=== PATIENT | male | born 1950 | race Caucasian/White ===

== ENCOUNTER 2019-01-24 03:49 | Inpatient (IN) | payer OTHER | END 2019-01-27 10:38 | LOC: FER 03:49 → FM/S 06:40 ==

== ENCOUNTER 2020-04-22 12:32 | Emergency (ER) | payer OTHER ==
[2020-04-22 12:47] VITALS: BP 137/95; TEMP 98.7; BMI 28.0
--- NOTE | 2020-04-22 12:56 | PDOC ---
History of Present Illness - General Chief Complaint: Redness To Affected Area Stated Complaint: LEFT FOOT WOUND, REDNESS Time Seen by Provider: 04/22/20 12:37 History Source: Patient Exam Limitations: No Limitations - History of Present Illness Initial Comments: 04/22/20 12:46 69 yo M h/o COPD, schizoaffective d/o, HTN p/w L foot wound x3 days. States he hit is against something at night but wasn't sure what he hit it against. Noticed some redness and swelling in the area and some weeping of the wound on the first day but denies at present time. States he thinks it might look a little better since the onset. Denies fevers. No numbness or weakness in feet. Unsure of last tetanus. Denies pain at site and reports he is able to ambulate without difficulty. Past History - Medical History Allergies/Adverse Reactions: Allergies Allergy/AdvReac Type Severity Reaction Status Date / Time No Known Allergies Allergy Verified 04/22/20 12:34 Home Medications: Ambulatory Orders Amlodipine Besylate [Norvasc -] 10 mg PO DAILY 01/24/19 Atenolol [Tenormin -] 25 mg PO DAILY 01/24/19 Escitalopram Oxalate [Lexapro -] 20 mg PO DAILY 01/24/19 Olanzapine [Zyprexa -] 15 mg PO HS tablet 01/27/19 Clindamycin [Cleocin -] 450 mg PO Q8H #72 capsule 04/22/20 Anemia: No Asthma: No Cancer: No Cardiac Disorders: No CVA: No COPD: Yes CHF: No Dementia: No Diabetes: No GI Disorders: No Disorders: No HTN: Yes Hypercholesterolemia: No Liver Disease: No Psychiatric Problems: Yes (DEPRESSION) Seizures: No Thyroid Disease: No - Surgical History Abdominal Surgery: No Appendectomy: No Cardiac Surgery: Yes (cardiac cath/ stent) Cholecystectomy: No Lung Surgery: No Neurologic Surgery: No Orthopedic Surgery: No - Immunization History Immunization Up to Date: Yes - Psycho-Social/Smoking History Smoking Status: Yes Smoking History: Former smoker Have you smoked in the past 12 months: Yes Number of Cigarettes Smoked Daily: 10 Information on smoking cessation initiated: Yes 'Breaking Loose' booklet given: 08/29/12 - Substance Abuse Hx (Audit-C & DAST Scrn) How often the patient has a drink containing alcohol: Never Score: In Men: 4 or > Positive; In Women: 3 or > Positive: 0 Screen Result (Pos requires Nsg. Audit-10AR): Negative In the last yr the pt used illegal drug/Rx for NonMed reason: No Score: Yes response is considered Positive: 0 Screen Result (Positive result requires Nsg. DAST-10): Negative Review of Systems - Review of Systems Able to Perform ROS?: Yes Comments:: 04/22/20 12:48 GENERAL/CONSTITUTIONAL: No fever or chills. No weakness. HEAD, EYES, EARS, NOSE AND THROAT: No change in vision. No ear pain or discharge. No sore throat. CARDIOVASCULAR: No chest pain or shortness of breath. RESPIRATORY: No cough, wheezing, or hemoptysis. GASTROINTESTINAL: No nausea, vomiting, diarrhea or constipation. GENITOURINARY: No dysuria, frequency, or change in urination. MUSCULOSKELETAL: No joint pain. No neck or back pain. SKIN: as per HPI. NEUROLOGIC: No headache, vertigo, loss of consciousness, or change in strength/sensation. ENDOCRINE: No increased thirst. No abnormal weight change. HEMATOLOGIC/LYMPHATIC: No anemia, easy bleeding, or history of blood clots. ALLERGIC/IMMUNOLOGIC: No hives or skin allergy. *Physical Exam - Vital Signs Last Vital Signs Temp Pulse Resp BP Pulse Ox 98.7 F 101 H 20 137/95 97 04/22/20 12:32 04/22/20 12:32 04/22/20 12:32 04/22/20 12:32 04/22/20 12:32 - Physical Exam 04/22/20 12:56 GENERAL: Well appearing, in no acute distress HEENT: NCAT, conjunctiva not injected, MMM, EOMI NECK: Normal ROM, supple LUNGS: Good air entry. No Rhonchi and no crackles, trace end expiratory wheeze ( chronic as per patient) HEART: RRR, + s1 s2 ABDOMEN: Soft, nontender, normoactive bowel sounds. No guarding, no rebound. No masses BACK: no midline or paraspinal tenderness. No CVA tenderness. EXTREMITIES: Warm and well perfused. No LE edema. FROM. No clubbing or cyanosis. +~1cm x1cm wound to L 2nd toe without active drainage or bleeding, no ttp, +surrounding erythema extending ~3.5 cms proximally, no crepitus, no fluctuance, small bruising noted to L 2nd toe, able to wiggle toes bilaterally, sensation intact to light touch, +DP pulses NEUROLOGICAL: Aox3, Speech fluent, face symmetric, tongue/uvula midline. Sensation grossly intact to light touch. Ambulatory with steady gait. Strength intact. No focal deficits. SKIN: Warm, dry, normal turgor. ED Treatment Course - LABORATORY CBC & Chemistry Diagram: 04/22/20 12:50 04/22/20 12:50 - RADIOLOGY Radiology Studies Ordered: Category Date Time Status FOOT-LEFT [RAD] Stat Radiology 04/22/20 12:44 Ordered Medical Decision Making - Medical Decision Making 04/22/20 12:59 69 yo M with small toe wound/ulcer 2/2 minor trauma with some surrounding eryt madelny and warmth however no ttp, drainage, or fluctuance, possible early/mild cellulitis 2/2 trauma vs. lower suspicion for fx as no ttp and no restricted ROM of exam. Plan: -labs -xray L foot -if xray and labs without concerning findings will d/c home with trial of PO abx clindamycin x7 days, patient reports he can f/u with his PMD in 2 days, return precautions given This clinical encounter is taking place during a federal and state health care emergency attributable to the novel [place] Virus pandemic. The Export Administrator of the Department of Health and Human Services has declared, pu rsuant to the Public Health Service Act 319F-3 (42 U.S[place]C. 247d-6d), that a covered persons activities related to medical countermeasures against COVID-19 will be immune from liability under Federal and State law. 04/22/20 14:10 Labs and imaging reviewed. Will d/c with rx for clindamycin. Patient to f/u with his PMD in 2 days. Patient agreeable to plan and verbalized understanding. Discharge - Discharge Information Problems reviewed: Yes Clinical Impression/Diagnosis: Cellulitis and abscess of foot Condition: Stable Disposition: HOME - Admission No - Additional Discharge Information Prescriptions: Clindamycin [Cleocin -] 450 mg PO Q8H #72 capsule - Follow up/Referral Referrals: Lupe Elliott MD [Primary Care Provider] - - Patient Discharge Instructions Patient Printed Discharge Instructions: DI for Cellulitis -- Adult Additional Instructions: You are being discharged with a prescription for clindamycin to be taken every 8 hours for 7 days. You should follow up with your PMD in 2 days. Return to the ED for new or worsening symptoms. - Post Discharge Activity
[2020-04-22 13:02] LABS: BASO % 0.6 % (0-2.0); EOS % 2.2 % (0-4.5); HEMATOCRIT 39.8 % (35.4-49); LYMPH % 18.4 % (8-40); MCH 32.5 pg (25.7-33.7); MCHC 32.6 g/dl (32.0-35.9); MEAN CELL VOLUME 99.7 fl (80-96); MONO % 7.7 % (3.8-10.2); NEUT % 71.1 % (42.8-82.8); PLATELET COUNT 243 K/MM3 (134-434); RBC 3.99 M/mm3 (4.00-5.60); RDW 13.3 % (11.9-15.9); WHITE BLOOD COUNT 9.7 K/mm3 (4.0-10.8)
[2020-04-22 13:15] LABS: ALBUMIN 3.9 g/dl (3.4-5.0); BILIRUBIN,TOTAL 0.4 mg/dl (0.2-1); CALCIUM 8.9 mg/dl (8.5-10); CREATININE 1.1 mg/dl (0.55-1.3); POTASSIUM 4.2 mmol/L (3.5-5.1)
[2020-04-22 15:03] VITALS: PULSE 89
== END 2020-04-22 14:20 | disposition home or self-care (01) ==
LOC: FER 12:32
DX: L03.116 Cellulitis of left lower limb (principal)
CPT/HCPCS: 36415; 73630-TC-LT; 80053; 85025; 99284-25

== ENCOUNTER 2020-07-12 15:55 | Inpatient (IN) | payer OTHER ==
[2020-07-12] MEDS ORDERED: SODIUM CHLORIDE 0.9% 500 ML INFUS.BAG IV ONE (16:11)
[2020-07-12] MEDS ORDERED: ALBUTEROL SO4 2.5/IPRATROPIUM 0.5 INH SOL 3 ML VIAL.NEB. NEB ONE ×2 (16:36→16:43)
[2020-07-12 17:06] LABS: BILIRUBIN,TOTAL 0.4 mg/dl (0.2-1); CALCIUM 8.9 mg/dl (8.5-10); CREATININE 1.1 mg/dl (0.55-1.3); POTASSIUM 3.9 mmol/L (3.5-5.1); TOT PROT 6.9 g/dl (6.4-8.2)
[2020-07-12 17:08] LABS: BASO % 0.6 % (0-2.0); EOS % 2.8 % (0-4.5); HEMATOCRIT 42.7 % (35.4-49); HEMOGLOBIN 14.1 GM/dl (11.7-16.9); LYMPH % 14.3 % (8-40); MCH 31.6 pg (25.7-33.7); MEAN CELL VOLUME 95.7 fl (80-96); MEAN PLT VOLUME 8.6 fl (7.5-11.1); NEUT % 73.3 % (42.8-82.8); PLATELET COUNT 248 K/MM3 (134-434); RBC 4.46 M/mm3 (4.00-5.60); RDW 12.5 % (11.9-15.9); WHITE BLOOD COUNT 9.3 K/mm3 (4.0-10.8)
[2020-07-12] MEDS ORDERED: ALBUTEROL SO4 0.083% IH SOL 2.5 MG/3 ML VIAL.NEB. NEB PRN (22:37)
[2020-07-12] MEDS ORDERED: ALBUTEROL SO4 HFA INHALER IH PRN (22:43)
[2020-07-13] MEDS ORDERED: DEXTROSE 5%-0.45% SALINE 1,000 ML IV SCH (08:15)
[2020-07-13] MEDS: ALBUTEROL SO4 HFA INHALER IH SCH ×3 (09:01→20:15)
[2020-07-13] MEDS: amLODIPine BESYLATE 10 MG TABLET (FP) PO SCH ×2 (09:11→15:31)
[2020-07-13] MEDS ORDERED: ALBUTEROL SO4 0.083% IH SOL 2.5 MG/3 ML VIAL.NEB. NEB PRN (10:42)
[2020-07-13] MEDS ORDERED: ACETAMINOPHEN 500 MG TABLET (FP) PO PRN (14:47)
[2020-07-13] MEDS: ENOXAPARIN NA (PORCINE) 40 MG/0.4 ML DISP.SYRIN SQ SCH (15:17)
[2020-07-13] MEDS: PANTOPRAZOLE SODIUM 40 MG VIAL IVPUSH SCH (15:17)
[2020-07-13] MEDS: OLANZapine 10 MG TABLET PO SCH (21:31)
[2020-07-13] MEDS: POTASSIUM CHLORIDE 10 MEQ in DEXTROSE 5%-NORMAL SALINE 1,000 ML IVPB SCH (22:12)
[2020-07-14] MEDS: ALBUTEROL SO4 HFA INHALER IH SCH ×4 (03:06→21:01)
[2020-07-14 08:16] LABS: HEMATOCRIT 41.2 % (35.4-49); HEMOGLOBIN 13.6 GM/dl (11.7-16.9); MCH 31.9 pg (25.7-33.7); MCHC 33.1 g/dl (32.0-35.9); MEAN CELL VOLUME 96.6 fl (80-96); MEAN PLT VOLUME 8.6 fl (7.5-11.1); PLATELET COUNT 224 K/MM3 (134-434); RBC 4.27 M/mm3 (4.00-5.60); RDW 13.4 % (11.9-15.9); WHITE BLOOD COUNT 8.1 K/mm3 (4.0-10.8)
[2020-07-14 09:21] LABS: ALBUMIN 3.5 g/dl (3.4-5.0); BILIRUBIN,TOTAL 0.9 mg/dl (0.2-1); CALCIUM 8.6 mg/dl (8.5-10); CREATININE 1.1 mg/dl (0.55-1.3); POTASSIUM 4.2 mmol/L (3.5-5.1); TOT PROT 6.2 g/dl (6.4-8.2)
[2020-07-14] MEDS: POTASSIUM CHLORIDE 10 MEQ in DEXTROSE 5%-NORMAL SALINE 1,000 ML IVPB SCH ×2 (09:30→22:01)
[2020-07-14] MEDS: ESCITALOPRAM OXALATE 20 MG TABLET PO SCH (09:30)
[2020-07-14] MEDS: ENOXAPARIN NA (PORCINE) 40 MG/0.4 ML DISP.SYRIN SQ SCH (09:31)
[2020-07-14] MEDS: amLODIPine BESYLATE 10 MG TABLET (FP) PO SCH (09:31)
[2020-07-14] MEDS: PANTOPRAZOLE SODIUM 40 MG VIAL IVPUSH SCH (09:31)
[2020-07-14 14:50] VITALS: BMI 28.2
[2020-07-14] MEDS: OLANZapine 10 MG TABLET PO SCH (22:01)
[2020-07-15] MEDS: ALBUTEROL SO4 HFA INHALER IH SCH ×4 (02:15→21:03)
[2020-07-15 09:16] LABS: ALBUMIN 3.4 g/dl (3.4-5.0); BILIRUBIN,TOTAL 0.7 mg/dl (0.2-1); CALCIUM 8.9 mg/dl (8.5-10); POTASSIUM 4.2 mmol/L (3.5-5.1); TOT PROT 6.3 g/dl (6.4-8.2)
[2020-07-15] MEDS: PANTOPRAZOLE SODIUM 40 MG VIAL IVPUSH SCH (12:13)
[2020-07-15] MEDS: ENOXAPARIN NA (PORCINE) 40 MG/0.4 ML DISP.SYRIN SQ SCH (12:14)
[2020-07-15] MEDS: POTASSIUM CHLORIDE 10 MEQ in DEXTROSE 5%-NORMAL SALINE 1,000 ML IVPB SCH (12:15)
[2020-07-15] MEDS ORDERED: PROPOFOL 20 ML ONE ×2 (12:43)
[2020-07-15] MEDS ORDERED: ePHEDrine SULFATE 50 MG/1 ML AMPULE ONE (13:12)
[2020-07-15] MEDS: ESCITALOPRAM OXALATE 20 MG TABLET PO SCH (13:25)
[2020-07-15] MEDS: SUCRALFATE 1 GM/10 ML UNIT DOSE CUPS PO SCH ×2 (18:40→21:03)
[2020-07-15] MEDS: OLANZapine 10 MG TABLET PO SCH (21:03)
[2020-07-15] MEDS: PANTOPRAZOLE SOD 40 MG SUSPENSION PACKET PO SCH (21:03)
[2020-07-16] MEDS: ALBUTEROL SO4 HFA INHALER IH SCH ×3 (02:15→13:21)
[2020-07-16] MEDS: PANTOPRAZOLE SOD 40 MG SUSPENSION PACKET PO SCH (09:20)
[2020-07-16] MEDS: amLODIPine BESYLATE 10 MG TABLET (FP) PO SCH (09:20)
[2020-07-16] MEDS: ESCITALOPRAM OXALATE 20 MG TABLET PO SCH (09:20)
[2020-07-16] MEDS: SUCRALFATE 1 GM/10 ML UNIT DOSE CUPS PO SCH ×2 (09:20→13:21)
[2020-07-16 14:05] VITALS: BP 124/80; PULSE 90; TEMP 98.7
== END 2020-07-16 17:00 | disposition home or self-care (01) | DRG 392 ==
LOC: FER 15:55 → FM/S 21:55
PROVIDERS: ADMIT Internal Medicine; ATTEND Internal Medicine
PROC: 0DB38ZX Excision of Lower Esophagus, Via Natural or Artificial Opening Endoscopic, Diagnostic (ICD-10-PCS; principal; 2020-07-15 13:01)
DX: K22.2 Esophageal obstruction (principal); J44.9 Chronic obstructive pulmonary disease, unspecified; I10 Essential (primary) hypertension; F25.9 Schizoaffective disorder, unspecified; K44.9 Diaphragmatic hernia without obstruction or gangrene; E66.9 Obesity, unspecified; Z68.28 Body mass index [BMI] 28.0-28.9, adult; K20.80 Other esophagitis without bleeding; F17.210 Nicotine dependence, cigarettes, uncomplicated; R13.10 Dysphagia, unspecified
CPT/HCPCS: 36415; 71260-TC; 80053; 85025; 85027; 87040; 87077; 87086; 88305-TC; 88341-TC; 99285-25; C9803; Q9967; U0003